=== PATIENT | female | born 1950 | race Caucasian/White ===

== ENCOUNTER → 2016-10-16 | Outpatient (CLI) | payer OTHER, MEDICARE ==
[~2016-10-16] MED LIST: AMLO5TAB4 PO; ASPI-518 PO; CALC-1232 GT; CALC-4 PO; CALC667C4 PO; CARV6.2548 PO; COR3 PO; DILT60TA35 PO; INSU100I19 SQ; LOSA25TA12 PO; NEPVIT PO; SIMV10TA6 PO; SITA50TA3 PO; VENL37.55 PO; WARF5TAB73 PO
== END | disposition home or self-care (01) ==
LOC: CT 07:41
PROVIDERS: ATTEND Internal Medicine Gastroenterology
DX: N26.1 Atrophy of kidney (terminal) (principal); R19.7 Diarrhea, unspecified; I51.7 Cardiomegaly; Z95.810 Presence of automatic (implantable) cardiac defibrillator
CPT/HCPCS: 71010; 74176

== ENCOUNTER → 2016-12-21 | Day surgery (SDC) | payer MEDICARE, OTHER ==
[~2016-12-21] MED LIST changes: +ACETAMINOPHEN 325MG TABLET PO PRN; +ATROPINE SULFATE 1MG/10ML SYR IV PRN; +FENTANYL CITRATE/PF 50MCG/ML 2ML VIAL ONE; +HYDRALAZINE 20MG/ML VIAL IV PRN; +HYDROCODONE/ACETAMINOPHEN 5/325MG TABLET PO PRN; +IOHEXOL-300 100 ML BOTTLE ONE; +LIDOCAINE HCL 1% 20ML VIAL (Pyxis) INJ ONE; +MIDAZOLAM HCL 2 MG/2 ML VIAL ONE; +ONDANSETRON HCL 4MG/2ML VIAL IV PRN
[2016-12-21 12:27] LABS: BASOPHILS % 0.6 % (0.0-2.0); EOSINOPHILS % 4.7 % (0.0-5.0); HEMATOCRIT. 29.9 % (36.0-48.0); HEMOGLOBIN. 10.1 g/dL (12.0-16.0); LYMPHOCYTES % 24.5 % (20.0-50.0); MEAN CORPUSCULAR HEMOGLOBIN 34.7 pg (28.0-32.0); MEAN CORPUSCULAR VOLUME 103.1 fL (81.0-99.0); MEAN PLATELET VOLUME 7.2 fl (7.4-10.4); MONOCYTES % 13.3 % (2.0-8.0); NEUTROPHILS % 56.9 % (40.0-76.0); PLATELET 171 x1000/uL (130-400); RED CELL DISTRIBUTION WIDTH 14.5 % (11.6-14.6)
[2016-12-21 12:31] LABS: PARTIAL THROMBOPLASTIN TIME 31.7 sec (23.4-31.0); PROTHROMBIN TIME 20.6 sec (9.4-11.6)
== END | disposition home or self-care (01) ==
LOC: CCL 11:09
PROVIDERS: ATTEND Specialist
DX: I25.10 Atherosclerotic heart disease of native coronary artery without angina pectoris (principal); I51.7 Cardiomegaly; I50.9 Heart failure, unspecified
CPT/HCPCS: 36415; 80048; 85025; 85610; 85730; 93458; C1760; C1769; C1887; C1893; J1644; J2250; J3010; J3490; Q9967

== ENCOUNTER 2017-10-20 16:50 | Inpatient (IN) | payer MEDICARE, OTHER ==
[~2017-10-20] VITALS: Ht 154.9 cm; Wt 61.2 kg
[~2017-10-20 16:50] MED LIST changes: -ACETAMINOPHEN 325MG TABLET PO PRN; -AMLO5TAB4 PO; -ATROPINE SULFATE 1MG/10ML SYR IV PRN; -CALC-1232 GT; -CALC-4 PO; -CARV6.2548 PO; +COR25 PO; -COR3 PO; -DILT60TA35 PO; +ESCI10TA PO; -FENTANYL CITRATE/PF 50MCG/ML 2ML VIAL ONE; +FOLI1TAB63 PO; -HYDRALAZINE 20MG/ML VIAL IV PRN; -HYDROCODONE/ACETAMINOPHEN 5/325MG TABLET PO PRN; -IOHEXOL-300 100 ML BOTTLE ONE; +LANTUSUD SUBCUT; -LIDOCAINE HCL 1% 20ML VIAL (Pyxis) INJ ONE; +LORA0.5T2 PO; -LOSA25TA12 PO; +MECL-109 PO; -MIDAZOLAM HCL 2 MG/2 ML VIAL ONE; -NEPVIT PO; -ONDANSETRON HCL 4MG/2ML VIAL IV PRN; +WARF4TAB40 PO; -WARF5TAB73 PO
[2017-10-20 18:42] VITALS: BP 164/51
[2017-10-20] MEDS ORDERED: DEXTROSE 50% WATER 50ML SYRINGE IV PRN (18:45)
[2017-10-20] MEDS ORDERED: LABETALOL 5MG/ML SYR 20 MG/4 ML SYRINGE IV PRN (18:45)
[2017-10-20] MEDS ORDERED: MECLIZINE 25MG TABLET PO PRN (18:45)
[2017-10-20 20:00] VITALS: BP 159/52
[2017-10-20] MEDS: CARVEDILOL 25MG TABLET PO SCH (21:00)
[2017-10-20] MEDS: BLOOD SUGAR DIAGNOSTIC STRIP TEST SCH (21:40)
[2017-10-20] MEDS: ACETAMINOPHEN 325MG TABLET PO PRN (21:55)
[2017-10-20] MEDS: PHENYTOIN SODIUM EXTENDED 100MG CAPSULE PO SCH (21:55)
[2017-10-20] MEDS: ATORVASTATIN CALCIUM 10MG TABLET PO SCH (21:55)
[2017-10-20] MEDS: LOSARTAN POTASSIUM 50 MG TABLET PO SCH (21:55)
[2017-10-20] MEDS: AMLODIPINE 5MG TABLET PO SCH (21:56)
[2017-10-20] MEDS: INSULIN LISPRO 100 UNITS/ML SUBCUT SCH (21:57)
[2017-10-21] MEDS: INSULIN LISPRO 100 UNITS/ML SUBCUT SCH ×4 (06:10→22:23)
[2017-10-21] MEDS: BLOOD SUGAR DIAGNOSTIC STRIP TEST SCH ×4 (06:10→21:37)
[2017-10-21 06:47] LABS: BASOPHILS % 1.1 % (0.0-2.0); EOSINOPHILS % 6.3 % (0.0-5.0); HEMATOCRIT. 35.9 % (36.0-48.0); HEMOGLOBIN. 12.1 g/dL (12.0-16.0); LYMPHOCYTES % 26.7 % (20.0-50.0); MEAN PLATELET VOLUME 8.1 fl (7.4-10.4); MONOCYTES % 12.2 % (2.0-8.0); NEUTROPHILS % 53.7 % (40.0-76.0); PLATELET 162 x1000/uL (130-400); RED BLOOD CELL COUNT 3.45 mill/uL (4.2-5.4); RED CELL DISTRIBUTION WIDTH 14.5 % (11.6-14.6)
[2017-10-21 07:00] LABS: CHLORIDE 100 mEq/L (98-107)
[2017-10-21 08:00] VITALS: BP 136/34
[2017-10-21] MEDS: CALCIUM ACETATE 667MG CAPSULE PO SCH ×3 (08:23→17:51)
[2017-10-21] MEDS: FOLIC ACID/VITAMIN B COMP W-C TABLET PO SCH (08:23)
[2017-10-21] MEDS: AMLODIPINE 5MG TABLET PO SCH ×2 (08:24→21:00)
[2017-10-21] MEDS: CARVEDILOL 25MG TABLET PO SCH ×2 (08:24→22:22)
[2017-10-21] MEDS: LOSARTAN POTASSIUM 50 MG TABLET PO SCH ×2 (08:24→21:00)
[2017-10-21] MEDS ORDERED: DOCUSATE SODIUM 250MG CAPSULE PO PRN (09:45)
[2017-10-21 20:00] VITALS: BP 131/62
[2017-10-21] MEDS: PHENYTOIN SODIUM EXTENDED 100MG CAPSULE PO SCH (22:21)
[2017-10-21] MEDS: ATORVASTATIN CALCIUM 10MG TABLET PO SCH (22:22)
[2017-10-22] MEDS: BLOOD SUGAR DIAGNOSTIC STRIP TEST SCH ×4 (06:28→21:35)
[2017-10-22 08:00] VITALS: BP 128/41
[2017-10-22] MEDS: CALCIUM ACETATE 667MG CAPSULE PO SCH ×3 (08:12→17:00)
[2017-10-22] MEDS: LOSARTAN POTASSIUM 50 MG TABLET PO SCH ×2 (08:12→22:00)
[2017-10-22] MEDS: AMLODIPINE 5MG TABLET PO SCH ×2 (08:13→21:00)
[2017-10-22] MEDS: FOLIC ACID/VITAMIN B COMP W-C TABLET PO SCH (08:13)
[2017-10-22] MEDS: INSULIN LISPRO 100 UNITS/ML SUBCUT SCH ×4 (08:13→22:01)
[2017-10-22] MEDS: CARVEDILOL 25MG TABLET PO SCH ×2 (08:13→21:00)
[2017-10-22 08:20] LABS: BASOPHILS % 1.2 % (0.0-2.0); HEMATOCRIT. 34.6 % (36.0-48.0); HEMOGLOBIN. 11.5 g/dL (12.0-16.0); LYMPHOCYTES % 29.9 % (20.0-50.0); MEAN CORPUSCULAR HEMOGLOBIN 34.6 pg (28.0-32.0); MEAN CORPUSCULAR VOLUME 104.1 fL (81.0-99.0); MEAN PLATELET VOLUME 8.1 fl (7.4-10.4); MONOCYTES % 12.8 % (2.0-8.0); NEUTROPHILS % 51.1 % (40.0-76.0); PLATELET 169 x1000/uL (130-400); RED BLOOD CELL COUNT 3.32 mill/uL (4.2-5.4); RED CELL DISTRIBUTION WIDTH 14.5 % (11.6-14.6)
[2017-10-22 20:00] VITALS: BP 156/36
[2017-10-22] MEDS: PHENYTOIN SODIUM EXTENDED 100MG CAPSULE PO SCH (21:54)
[2017-10-22] MEDS: ATORVASTATIN CALCIUM 10MG TABLET PO SCH (21:55)
[2017-10-23] MEDS: INSULIN LISPRO 100 UNITS/ML SUBCUT SCH ×4 (06:04→20:55)
[2017-10-23] MEDS: BLOOD SUGAR DIAGNOSTIC STRIP TEST SCH ×4 (06:04→20:37)
[2017-10-23 06:37] LABS: BASOPHILS % 0.9 % (0.0-2.0); EOSINOPHILS % 5.3 % (0.0-5.0); HEMATOCRIT. 34.4 % (36.0-48.0); HEMOGLOBIN. 11.5 g/dL (12.0-16.0); LYMPHOCYTES % 28.7 % (20.0-50.0); MEAN CORPUSCULAR HEMOGLOBIN 34.6 pg (28.0-32.0); MEAN PLATELET VOLUME 7.8 fl (7.4-10.4); MONOCYTES % 13.5 % (2.0-8.0); NEUTROPHILS % 51.6 % (40.0-76.0); PLATELET 181 x1000/uL (130-400); RED BLOOD CELL COUNT 3.34 mill/uL (4.2-5.4); RED CELL DISTRIBUTION WIDTH 14.3 % (11.6-14.6)
[2017-10-23 07:07] LABS: CHLORIDE 96 mEq/L (98-107)
[2017-10-23 07:14] LABS: PHOSPHORUS 3.6 mg/dL (2.5-4.9)
[2017-10-23 07:18] LABS: TOTAL IRON BINDING CAPACITY 176 ug/dL (250-450)
[2017-10-23 07:57] LABS: FOLIC ACID (FOLATE) SERUM >20 ng/mL ng/mL (>5.38)
[2017-10-23 08:00] VITALS: BP 116/62
[2017-10-23 08:09] LABS: VITAMIN B12 SERUM 1150 pg/mL (211-911)
[2017-10-23] MEDS: ACETAMINOPHEN 325MG TABLET PO PRN ×2 (08:26→13:54)
[2017-10-23] MEDS: CALCIUM ACETATE 667MG CAPSULE PO SCH ×3 (08:26→16:07)
[2017-10-23] MEDS: FOLIC ACID/VITAMIN B COMP W-C TABLET PO SCH (08:26)
[2017-10-23] MEDS: LOSARTAN POTASSIUM 50 MG TABLET PO SCH ×2 (08:26→20:32)
[2017-10-23] MEDS: AMLODIPINE 5MG TABLET PO SCH ×2 (08:27→20:32)
[2017-10-23] MEDS: CARVEDILOL 25MG TABLET PO SCH ×2 (08:27→20:32)
[2017-10-23 09:34] LABS: FERRITIN 620 ng/mL (10-291)
[2017-10-23 20:00] VITALS: BP 146/43
[2017-10-23] MEDS: PHENYTOIN SODIUM EXTENDED 100MG CAPSULE PO SCH (20:33)
[2017-10-23] MEDS: ATORVASTATIN CALCIUM 10MG TABLET PO SCH (20:33)
[2017-10-24] MEDS: BLOOD SUGAR DIAGNOSTIC STRIP TEST SCH ×4 (06:19→21:00)
[2017-10-24] MEDS: INSULIN LISPRO 100 UNITS/ML SUBCUT SCH ×4 (06:54→21:00)
[2017-10-24 07:10] LABS: BASOPHILS % 0.7 % (0.0-2.0); EOSINOPHILS % 5.3 % (0.0-5.0); HEMATOCRIT. 32.9 % (36.0-48.0); HEMOGLOBIN. 11.1 g/dL (12.0-16.0); LYMPHOCYTES % 29.9 % (20.0-50.0); MEAN CORPUSCULAR HEMOGLOBIN 34.8 pg (28.0-32.0); MEAN CORPUSCULAR VOLUME 103.1 fL (81.0-99.0); MEAN PLATELET VOLUME 7.9 fl (7.4-10.4); MONOCYTES % 13.9 % (2.0-8.0); NEUTROPHILS % 50.2 % (40.0-76.0); PLATELET 186 x1000/uL (130-400); RED BLOOD CELL COUNT 3.19 mill/uL (4.2-5.4); RED CELL DISTRIBUTION WIDTH 14.4 % (11.6-14.6)
[2017-10-24 08:00] VITALS: BP 119/35
[2017-10-24] MEDS: LOSARTAN POTASSIUM 50 MG TABLET PO SCH ×2 (09:00→22:23)
[2017-10-24] MEDS: AMLODIPINE 5MG TABLET PO SCH ×2 (09:00→22:17)
[2017-10-24] MEDS: CARVEDILOL 25MG TABLET PO SCH ×2 (09:00→21:00)
[2017-10-24] MEDS: CALCIUM ACETATE 667MG CAPSULE PO SCH ×3 (09:10→17:15)
[2017-10-24] MEDS: FOLIC ACID/VITAMIN B COMP W-C TABLET PO SCH (09:10)
[2017-10-24] MEDS: ACETAMINOPHEN 325MG TABLET PO PRN (14:44)
[2017-10-24 20:00] VITALS: BP 97/45
[2017-10-24] MEDS: PHENYTOIN SODIUM EXTENDED 100MG CAPSULE PO SCH (22:17)
[2017-10-24] MEDS: ATORVASTATIN CALCIUM 10MG TABLET PO SCH (22:17)
[2017-10-25 06:03] LABS: BASOPHILS % 1.1 % (0.0-2.0); EOSINOPHILS % 5.5 % (0.0-5.0); HEMOGLOBIN. 11.4 g/dL (12.0-16.0); LYMPHOCYTES % 26.1 % (20.0-50.0); MEAN CORPUSCULAR HEMOGLOBIN 34.7 pg (28.0-32.0); MEAN CORPUSCULAR VOLUME 103.7 fL (81.0-99.0); MEAN PLATELET VOLUME 7.4 fl (7.4-10.4); MONOCYTES % 14.6 % (2.0-8.0); NEUTROPHILS % 52.7 % (40.0-76.0); PLATELET 188 x1000/uL (130-400); RED BLOOD CELL COUNT 3.28 mill/uL (4.2-5.4); RED CELL DISTRIBUTION WIDTH 14.7 % (11.6-14.6)
[2017-10-25] MEDS: BLOOD SUGAR DIAGNOSTIC STRIP TEST SCH ×4 (06:30→21:03)
[2017-10-25] MEDS: INSULIN LISPRO 100 UNITS/ML SUBCUT SCH ×4 (06:30→21:46)
[2017-10-25 08:00] VITALS: BP 119/60
[2017-10-25] MEDS: CARVEDILOL 25MG TABLET PO SCH ×2 (09:04→21:02)
[2017-10-25] MEDS: LOSARTAN POTASSIUM 50 MG TABLET PO SCH ×2 (09:04→21:02)
[2017-10-25] MEDS: CALCIUM ACETATE 667MG CAPSULE PO SCH ×3 (09:04→17:04)
[2017-10-25] MEDS: AMLODIPINE 5MG TABLET PO SCH ×2 (09:05→21:03)
[2017-10-25] MEDS: FOLIC ACID/VITAMIN B COMP W-C TABLET PO SCH (12:34)
[2017-10-25] MEDS: ACETAMINOPHEN 325MG TABLET PO PRN (17:04)
[2017-10-25 20:00] VITALS: BP 134/54
[2017-10-25] MEDS: ATORVASTATIN CALCIUM 10MG TABLET PO SCH (21:02)
[2017-10-25] MEDS: PHENYTOIN SODIUM EXTENDED 100MG CAPSULE PO SCH (21:02)
[2017-10-26] MEDS: TRAMADOL 50MG TABLET PO PRN (05:23)
[2017-10-26] MEDS: BLOOD SUGAR DIAGNOSTIC STRIP TEST SCH ×4 (05:26→21:17)
[2017-10-26] MEDS: INSULIN LISPRO 100 UNITS/ML SUBCUT SCH ×4 (05:26→21:18)
[2017-10-26 07:30] LABS: HEMATOCRIT. 32.5 % (36.0-48.0); HEMOGLOBIN. 10.7 g/dL (12.0-16.0); MEAN CORPUSCULAR HEMOGLOBIN 34.2 pg (28.0-32.0); MEAN CORPUSCULAR VOLUME 103.6 fL (81.0-99.0); MEAN PLATELET VOLUME 7.6 fl (7.4-10.4); PLATELET 194 x1000/uL (130-400); RED BLOOD CELL COUNT 3.13 mill/uL (4.2-5.4); RED CELL DISTRIBUTION WIDTH 14.6 % (11.6-14.6)
[2017-10-26 07:50] LABS: CHLORIDE 101 mEq/L (98-107)
[2017-10-26 08:00] VITALS: BP 112/66
[2017-10-26] MEDS: CALCIUM ACETATE 667MG CAPSULE PO SCH ×3 (08:48→17:42)
[2017-10-26] MEDS: LOSARTAN POTASSIUM 50 MG TABLET PO SCH ×2 (08:49→20:37)
[2017-10-26] MEDS: FOLIC ACID/VITAMIN B COMP W-C TABLET PO SCH (08:49)
[2017-10-26] MEDS: CARVEDILOL 25MG TABLET PO SCH ×2 (08:49→20:37)
[2017-10-26] MEDS: AMLODIPINE 5MG TABLET PO SCH ×2 (08:49→20:37)
[2017-10-26 11:19] LABS: PLATELET ESTIMATE NORMAL
[2017-10-26 20:00] VITALS: BP_SYST 114; BP_SYST 160; BP_DIAS 56; BP_DIAS 57; BP_DIAS 58
[2017-10-26] MEDS: ATORVASTATIN CALCIUM 10MG TABLET PO SCH (20:37)
[2017-10-26] MEDS: PHENYTOIN SODIUM EXTENDED 100MG CAPSULE PO SCH (20:38)
[2017-10-26 21:35] VITALS: BP 151/42
[2017-10-27] MEDS: BLOOD SUGAR DIAGNOSTIC STRIP TEST SCH ×4 (06:06→21:08)
[2017-10-27] MEDS: INSULIN LISPRO 100 UNITS/ML SUBCUT SCH ×4 (06:45→21:26)
[2017-10-27 07:20] LABS: BASOPHILS % 0.8 % (0.0-2.0); EOSINOPHILS % 6.3 % (0.0-5.0); HEMATOCRIT. 33.9 % (36.0-48.0); HEMOGLOBIN. 11.3 g/dL (12.0-16.0); LYMPHOCYTES % 27.8 % (20.0-50.0); MEAN CORPUSCULAR HEMOGLOBIN 34.5 pg (28.0-32.0); MEAN CORPUSCULAR VOLUME 103.4 fL (81.0-99.0); MEAN PLATELET VOLUME 7.4 fl (7.4-10.4); NEUTROPHILS % 51.1 % (40.0-76.0); PLATELET 176 x1000/uL (130-400); RED BLOOD CELL COUNT 3.28 mill/uL (4.2-5.4); RED CELL DISTRIBUTION WIDTH 13.9 % (11.6-14.6)
[2017-10-27 08:00] VITALS: BP 118/38
[2017-10-27] MEDS: LOSARTAN POTASSIUM 50 MG TABLET PO SCH ×2 (08:53→20:59)
[2017-10-27] MEDS: CARVEDILOL 25MG TABLET PO SCH ×2 (08:53→20:59)
[2017-10-27] MEDS: CALCIUM ACETATE 667MG CAPSULE PO SCH ×3 (08:53→17:44)
[2017-10-27] MEDS: FOLIC ACID/VITAMIN B COMP W-C TABLET PO SCH (08:53)
[2017-10-27] MEDS: AMLODIPINE 5MG TABLET PO SCH ×2 (08:54→20:59)
[2017-10-27 20:00] VITALS: BP 120/49
[2017-10-27] MEDS: ATORVASTATIN CALCIUM 10MG TABLET PO SCH (20:59)
[2017-10-27] MEDS: PHENYTOIN SODIUM EXTENDED 100MG CAPSULE PO SCH (20:59)
[2017-10-28] MEDS: BLOOD SUGAR DIAGNOSTIC STRIP TEST SCH ×4 (06:20→21:21)
[2017-10-28 06:39] LABS: EOSINOPHILS % 6.8 % (0.0-5.0); HEMATOCRIT. 32.6 % (36.0-48.0); HEMOGLOBIN. 10.9 g/dL (12.0-16.0); MEAN CORPUSCULAR HEMOGLOBIN 34.7 pg (28.0-32.0); MEAN CORPUSCULAR VOLUME 103.3 fL (81.0-99.0); MEAN PLATELET VOLUME 7.8 fl (7.4-10.4); MONOCYTES % 13.8 % (2.0-8.0); NEUTROPHILS % 51.4 % (40.0-76.0); PLATELET 175 x1000/uL (130-400); RED BLOOD CELL COUNT 3.15 mill/uL (4.2-5.4); RED CELL DISTRIBUTION WIDTH 14.2 % (11.6-14.6)
[2017-10-28 06:51] LABS: CHLORIDE 102 mEq/L (98-107)
[2017-10-28] MEDS: INSULIN LISPRO 100 UNITS/ML SUBCUT SCH ×4 (07:12→21:00)
[2017-10-28 08:00] VITALS: BP 141/48
[2017-10-28 08:01] LABS: HEPATITIS B SURFACE ANTIGEN NEGATIVE
[2017-10-28 08:29] LABS: HEPATITIS B CORE AB IGM NEGATIVE
[2017-10-28 08:31] LABS: HEPATITIS A AB IGM NEGATIVE (NEGATIVE)
[2017-10-28] MEDS: CARVEDILOL 25MG TABLET PO SCH ×2 (09:00→20:39)
[2017-10-28] MEDS: FOLIC ACID/VITAMIN B COMP W-C TABLET PO SCH (09:18)
[2017-10-28] MEDS: CALCIUM ACETATE 667MG CAPSULE PO SCH ×3 (09:19→18:40)
[2017-10-28] MEDS: LOSARTAN POTASSIUM 50 MG TABLET PO SCH ×2 (09:19→20:39)
[2017-10-28] MEDS: AMLODIPINE 5MG TABLET PO SCH ×2 (09:20→20:40)
[2017-10-28] MEDS: TRAMADOL 50MG TABLET PO PRN (09:21)
[2017-10-28] MEDS: ACETAMINOPHEN 325MG TABLET PO PRN ×2 (12:45→21:39)
[2017-10-28] MEDS: PHENYTOIN SODIUM 700 MG in SODIUM CHLORIDE 0.9% 100 ML IV NR ×2 (18:41→19:48)
[2017-10-28 20:00] VITALS: BP 153/57
[2017-10-28] MEDS: PHENYTOIN SODIUM EXTENDED 100MG CAPSULE PO SCH (20:40)
[2017-10-28] MEDS: ATORVASTATIN CALCIUM 10MG TABLET PO SCH (20:40)
[2017-10-29] MEDS: BLOOD SUGAR DIAGNOSTIC STRIP TEST SCH ×4 (06:31→21:00)
[2017-10-29 06:42] LABS: BASOPHILS % 0.9 % (0.0-2.0); HEMATOCRIT. 31.2 % (36.0-48.0); HEMOGLOBIN. 10.5 g/dL (12.0-16.0); MEAN CORPUSCULAR HEMOGLOBIN 34.7 pg (28.0-32.0); MEAN CORPUSCULAR VOLUME 102.8 fL (81.0-99.0); MEAN PLATELET VOLUME 7.3 fl (7.4-10.4); MONOCYTES % 12.8 % (2.0-8.0); NEUTROPHILS % 47.3 % (40.0-76.0); PLATELET 169 x1000/uL (130-400); RED BLOOD CELL COUNT 3.03 mill/uL (4.2-5.4); RED CELL DISTRIBUTION WIDTH 14.4 % (11.6-14.6)
[2017-10-29] MEDS: INSULIN LISPRO 100 UNITS/ML SUBCUT SCH ×4 (06:43→21:00)
[2017-10-29 07:58] VITALS: BP 134/50
[2017-10-29 08:00] VITALS: BP 134/50
[2017-10-29] MEDS: CALCIUM ACETATE 667MG CAPSULE PO SCH ×4 (08:29→19:47)
[2017-10-29] MEDS: ACETAMINOPHEN 325MG TABLET PO PRN (08:30)
[2017-10-29] MEDS: AMLODIPINE 5MG TABLET PO SCH ×2 (08:30→22:01)
[2017-10-29] MEDS: LOSARTAN POTASSIUM 50 MG TABLET PO SCH ×2 (08:31→22:01)
[2017-10-29] MEDS: FOLIC ACID/VITAMIN B COMP W-C TABLET PO SCH (08:31)
[2017-10-29] MEDS: CARVEDILOL 25MG TABLET PO SCH ×2 (08:32→22:02)
[2017-10-29 20:00] VITALS: BP 166/52
[2017-10-29] MEDS: ATORVASTATIN CALCIUM 10MG TABLET PO SCH (21:59)
[2017-10-29] MEDS: PHENYTOIN SODIUM EXTENDED 100MG CAPSULE PO SCH (22:00)
[2017-10-30] MEDS: ACETAMINOPHEN 325MG TABLET PO PRN ×3 (00:23→22:15)
[2017-10-30] MEDS: BLOOD SUGAR DIAGNOSTIC STRIP TEST SCH ×4 (06:21→21:00)
[2017-10-30] MEDS: INSULIN LISPRO 100 UNITS/ML SUBCUT SCH ×4 (06:21→22:04)
[2017-10-30 07:27] LABS: EOSINOPHILS % 6.6 % (0.0-5.0); HEMATOCRIT. 29.8 % (36.0-48.0); LYMPHOCYTES % 25.2 % (20.0-50.0); MEAN CORPUSCULAR HEMOGLOBIN 34.3 pg (28.0-32.0); MEAN CORPUSCULAR VOLUME 102.3 fL (81.0-99.0); MONOCYTES % 13.7 % (2.0-8.0); NEUTROPHILS % 53.5 % (40.0-76.0); PLATELET 137 x1000/uL (130-400); RED BLOOD CELL COUNT 2.92 mill/uL (4.2-5.4); RED CELL DISTRIBUTION WIDTH 14.1 % (11.6-14.6)
[2017-10-30 07:49] LABS: CHLORIDE 99 mEq/L (98-107)
[2017-10-30] MEDS: CALCIUM ACETATE 667MG CAPSULE PO SCH ×3 (08:25→16:52)
[2017-10-30] MEDS: AMLODIPINE 5MG TABLET PO SCH ×2 (08:26→22:02)
[2017-10-30] MEDS: FOLIC ACID/VITAMIN B COMP W-C TABLET PO SCH (08:26)
[2017-10-30] MEDS: CARVEDILOL 25MG TABLET PO SCH ×2 (08:26→22:03)
[2017-10-30] MEDS: LOSARTAN POTASSIUM 50 MG TABLET PO SCH ×2 (08:26→22:03)
[2017-10-30 10:23] VITALS: BP 147/53
[2017-10-30 12:00] VITALS: BP 123/32
[2017-10-30] MEDS: HYDRALAZINE HCL 25MG TABLET PO SCH ×2 (14:13→22:00)
[2017-10-30] MEDS ORDERED: LACTULOSE 20G/30ML UDC PO NR (15:15)
[2017-10-30 20:00] VITALS: BP 151/52
[2017-10-30] MEDS: ATORVASTATIN CALCIUM 10MG TABLET PO SCH (22:01)
[2017-10-30] MEDS: PHENYTOIN SODIUM EXTENDED 100MG CAPSULE PO SCH (22:01)
[2017-10-30 23:00] VITALS: BP 135/45
[2017-10-31] MEDS: HYDRALAZINE HCL 25MG TABLET PO SCH ×3 (06:00→23:03)
[2017-10-31] MEDS: BLOOD SUGAR DIAGNOSTIC STRIP TEST SCH ×4 (06:30→21:17)
[2017-10-31] MEDS: INSULIN LISPRO 100 UNITS/ML SUBCUT SCH ×4 (07:40→21:00)
[2017-10-31 08:00] VITALS: BP 120/38
[2017-10-31 08:18] LABS: EOSINOPHILS % 8.4 % (0.0-5.0); HEMATOCRIT. 30.3 % (36.0-48.0); HEMOGLOBIN. 10.2 g/dL (12.0-16.0); LYMPHOCYTES % 27.1 % (20.0-50.0); MEAN CORPUSCULAR HEMOGLOBIN 34.6 pg (28.0-32.0); MEAN CORPUSCULAR VOLUME 103.1 fL (81.0-99.0); MEAN PLATELET VOLUME 8.7 fl (7.4-10.4); MONOCYTES % 14.6 % (2.0-8.0); NEUTROPHILS % 48.9 % (40.0-76.0); PLATELET 146 x1000/uL (130-400); RED BLOOD CELL COUNT 2.94 mill/uL (4.2-5.4); RED CELL DISTRIBUTION WIDTH 14.3 % (11.6-14.6)
[2017-10-31] MEDS: AMLODIPINE 5MG TABLET PO SCH ×2 (09:00→23:02)
[2017-10-31] MEDS: CARVEDILOL 25MG TABLET PO SCH ×2 (09:00→23:02)
[2017-10-31] MEDS: FOLIC ACID/VITAMIN B COMP W-C TABLET PO SCH (09:08)
[2017-10-31] MEDS: CALCIUM ACETATE 667MG CAPSULE PO SCH ×3 (09:09→16:33)
[2017-10-31] MEDS: LOSARTAN POTASSIUM 50 MG TABLET PO SCH ×2 (09:09→23:02)
[2017-10-31] MEDS: ACETAMINOPHEN 325MG TABLET PO PRN (15:15)
[2017-10-31 20:00] VITALS: BP 136/87
[2017-10-31] MEDS: ATORVASTATIN CALCIUM 10MG TABLET PO SCH (23:01)
[2017-10-31] MEDS: PHENYTOIN SODIUM EXTENDED 100MG CAPSULE PO SCH (23:01)
[2017-11-01] MEDS: ACETAMINOPHEN 325MG TABLET PO PRN (04:05)
[2017-11-01] MEDS: HYDRALAZINE HCL 25MG TABLET PO SCH ×2 (05:22→13:06)
[2017-11-01] MEDS: BLOOD SUGAR DIAGNOSTIC STRIP TEST SCH ×2 (06:07→11:15)
[2017-11-01] MEDS: INSULIN LISPRO 100 UNITS/ML SUBCUT SCH ×2 (06:48→13:09)
[2017-11-01 07:26] LABS: BASOPHILS % 1.1 % (0.0-2.0); EOSINOPHILS % 7.4 % (0.0-5.0); HEMATOCRIT. 28.9 % (36.0-48.0); HEMOGLOBIN. 9.7 g/dL (12.0-16.0); LYMPHOCYTES % 27.9 % (20.0-50.0); MEAN CORPUSCULAR HEMOGLOBIN 34.3 pg (28.0-32.0); MEAN CORPUSCULAR VOLUME 102.2 fL (81.0-99.0); MONOCYTES % 12.5 % (2.0-8.0); NEUTROPHILS % 51.1 % (40.0-76.0); PLATELET 136 x1000/uL (130-400); RED BLOOD CELL COUNT 2.83 mill/uL (4.2-5.4); RED CELL DISTRIBUTION WIDTH 13.9 % (11.6-14.6)
[2017-11-01 07:50] VITALS: BP 128/40
[2017-11-01 08:00] VITALS: BP 128/40
[2017-11-01] MEDS: CALCIUM ACETATE 667MG CAPSULE PO SCH ×2 (08:28→13:06)
[2017-11-01] MEDS: FOLIC ACID/VITAMIN B COMP W-C TABLET PO SCH (08:28)
[2017-11-01] MEDS: CARVEDILOL 25MG TABLET PO SCH (08:53)
[2017-11-01] MEDS: LOSARTAN POTASSIUM 50 MG TABLET PO SCH (08:54)
[2017-11-01] MEDS: AMLODIPINE 5MG TABLET PO SCH (08:55)
[2017-11-01 11:14] VITALS: BP 128/40
[2017-11-04 11:14] LABS: 25-HYDROXY VITAMIN D3 10 ng/mL (.)
== END 2017-11-01 14:45 | disposition home health service (06) | DRG 85 ==
PROVIDERS: ADMIT Physical Medicine & Rehabilitation Spinal Cord Injury Medicine; ATTEND Internal Medicine
PROC: 5A1D70Z Performance of Urinary Filtration, Intermittent, Less than 6 Hours Per Day (ICD-10-PCS; principal; 2017-10-22)
PROC: 5A1D70Z Performance of Urinary Filtration, Intermittent, Less than 6 Hours Per Day (ICD-10-PCS; 2017-10-23)
PROC: 5A1D70Z Performance of Urinary Filtration, Intermittent, Less than 6 Hours Per Day (ICD-10-PCS; 2017-10-24)
PROC: 5A1D70Z Performance of Urinary Filtration, Intermittent, Less than 6 Hours Per Day (ICD-10-PCS; 2017-10-26)
PROC: 5A1D70Z Performance of Urinary Filtration, Intermittent, Less than 6 Hours Per Day (ICD-10-PCS; 2017-10-29)
PROC: 5A1D70Z Performance of Urinary Filtration, Intermittent, Less than 6 Hours Per Day (ICD-10-PCS; 2017-10-31)
DX: S06.6X0A Traumatic subarachnoid hemorrhage without loss of consciousness, initial encounter (principal); N18.6 End stage renal disease; S42.252A Displaced fracture of greater tuberosity of left humerus, initial encounter for closed fracture; I48.92 Unspecified atrial flutter; I12.0 Hypertensive chronic kidney disease with stage 5 chronic kidney disease or end stage renal disease; W18.30XA Fall on same level, unspecified, initial encounter; S09.8XXA Other specified injuries of head, initial encounter; W18.39XA Other fall on same level, initial encounter; E11.22 Type 2 diabetes mellitus with diabetic chronic kidney disease; I48.91 Unspecified atrial fibrillation; E78.5 Hyperlipidemia, unspecified; R13.10 Dysphagia, unspecified; R53.81 Other malaise; R26.9 Unspecified abnormalities of gait and mobility; R79.89 Other specified abnormal findings of blood chemistry; H91.90 Unspecified hearing loss, unspecified ear; E87.5 Hyperkalemia; I25.10 Atherosclerotic heart disease of native coronary artery without angina pectoris; S62.511A Displaced fracture of proximal phalanx of right thumb, initial encounter for closed fracture; D63.1 Anemia in chronic kidney disease; F32.9 Major depressive disorder, single episode, unspecified; I25.5 Ischemic cardiomyopathy; Z99.2 Dependence on renal dialysis; Z91.81 History of falling; Y92.512 Supermarket, store or market as the place of occurrence of the external cause; Y92.89 Other specified places as the place of occurrence of the external cause; Y99.8 Other external cause status; Z79.01 Long term (current) use of anticoagulants; Z82.49 Family history of ischemic heart disease and other diseases of the circulatory system; Z95.810 Presence of automatic (implantable) cardiac defibrillator
CPT/HCPCS: 36415; 76700; 80048; 80053; 80185; 82306; 82607; 82728; 82746; 82962; 83540; 83550; 83735; 84100; 84134; 84443; 84630; 85025; 86705; 86709; 86803; 87340; 92523; 92610; 93005; 93970; 93971; 97110; 97112; 97116; 97162; 97167; 97530; 97535; A6261; J1165; J1815; J7030; J7050

== ENCOUNTER 2018-06-16 19:58 | Emergency (ER) | payer MEDICARE, OTHER ==
[~2018-06-16] VITALS: Ht 147.3 cm; Wt 62.0 kg
[2018-06-16] MEDS ORDERED: SODIUM CHLORIDE 0.9% 1,000 ML IV ONE (23:21)
[2018-06-16 23:51] LABS: BASOPHILS % 0.2 % (0.0-2.0); EOSINOPHILS % 0.4 % (0.0-5.0); HEMATOCRIT. 32.9 % (36.0-48.0); LYMPHOCYTES % 14.4 % (20.0-50.0); MEAN CORPUSCULAR HEMOGLOBIN 36.2 pg (28.0-32.0); MEAN CORPUSCULAR VOLUME 108.1 fL (81.0-99.0); MEAN PLATELET VOLUME 8.4 fl (7.4-10.4); MONOCYTES % 5.5 % (2.0-8.0); NEUTROPHILS % 79.5 % (40.0-76.0); PLATELET 101 x1000/uL (130-400); RED BLOOD CELL COUNT 3.04 mill/uL (4.2-5.4)
[2018-06-16 23:54] LABS: CHLORIDE 97 mEq/L (98-107)
[2018-06-16 23:55] LABS: INR 1.3; PROTHROMBIN TIME 12.6 sec (9.1-11.1)
[2018-06-17] MEDS ORDERED: SODIUM CHLORIDE 0.9% 1,000 ML IV SCH (00:15)
[2018-06-17 02:03] VITALS: BP 117/39
== END 2018-06-17 02:28 | disposition home or self-care (01) ==
LOC: ER 20:53
DX: J18.9 Pneumonia, unspecified organism (principal); R19.7 Diarrhea, unspecified; E78.00 Pure hypercholesterolemia, unspecified; I12.0 Hypertensive chronic kidney disease with stage 5 chronic kidney disease or end stage renal disease; N18.6 End stage renal disease; Z98.890 Other specified postprocedural states; Z95.0 Presence of cardiac pacemaker
CPT/HCPCS: 36415; 71045; 80053; 82962; 83605; 85025; 85610; 93005; 96360; 96361; 99284; J7030

== ENCOUNTER 2018-07-17 18:53 | Inpatient (IN) | payer MEDICARE, OTHER ==
[~2018-07-17] VITALS: Ht 152.4 cm; Wt 72.6 kg
[2018-07-17] MEDS ORDERED: LOPERAMIDE 2 MG/10 ML UDC PO ONE (19:30)
[2018-07-17] MEDS ORDERED: ONDANSETRON HCL 4MG/2ML INJ IV STA (19:30)
[2018-07-17 19:58] LABS: BASOPHILS % 0.7 % (0.0-2.0); EOSINOPHILS % 2.7 % (0.0-5.0); HEMATOCRIT. 34.9 % (36.0-48.0); HEMOGLOBIN. 11.4 g/dL (12.0-16.0); LYMPHOCYTES % 20.5 % (20.0-50.0); MEAN CORPUSCULAR HEMOGLOBIN 36.5 pg (28.0-32.0); MEAN CORPUSCULAR VOLUME 111.5 fL (81.0-99.0); MEAN PLATELET VOLUME 7.9 fl (7.4-10.4); NEUTROPHILS % 62.1 % (40.0-76.0); PLATELET 152 x1000/uL (130-400); RED BLOOD CELL COUNT 3.13 mill/uL (4.2-5.4); RED CELL DISTRIBUTION WIDTH 17.1 % (11.6-14.6)
[2018-07-17 20:02] LABS: CHLORIDE 105 mEq/L (98-107)
[2018-07-17 20:18] LABS: PLATELET ESTIMATE NORMAL
[2018-07-17] MEDS ORDERED: HYDROCODONE/ACETAMINOPHEN 5/325MG TABLET PO ONE (20:45)
[2018-07-17] MEDS ORDERED: CALCIUM CHLORIDE 1GM/10ML SYR IV ONE (21:00)
[2018-07-17] MEDS ORDERED: INSULIN REGULAR (HUMULIN R) 300UNITS/3ML IV ONE (21:00)
[2018-07-17] MEDS ORDERED: DEXTROSE 50% WATER 50ML SYRINGE IV ONE (21:00)
[2018-07-17] MEDS ORDERED: SODIUM BICARBONATE 8.4% 1 MEQ/ML 50ML SYR IV ONE (21:00)
[2018-07-18] MEDS ORDERED: ONDANSETRON HCL 4MG/2ML INJ IV PRN (00:30)
[2018-07-18] MEDS ORDERED: IPRATROPIUM/ALBUTEROL 0.5-3(2.5)MG/3ML NEB INH PRN (00:30)
[2018-07-18] MEDS ORDERED: DOCUSATE SODIUM 100MG CAPSULE PO PRN (00:30)
[2018-07-18 00:35] VITALS: BP 142/59
[2018-07-18] MEDS ORDERED: DEXTROSE 50% WATER 50ML SYRINGE IV PRN (02:15)
[2018-07-18 04:00] VITALS: BP 103/52
[2018-07-18] MEDS ORDERED: ATOR10TA MT (05:10)
[2018-07-18] MEDS ORDERED: CLOP75TA33 MT (05:10)
[2018-07-18] MEDS ORDERED: MONT10TA24 MT (05:10)
[2018-07-18] MEDS ORDERED: CARV25TA47 MT (05:10)
[2018-07-18] MEDS ORDERED: MECL12.584 MT (05:10)
[2018-07-18] MEDS ORDERED: DILT60TA3 MT (05:10)
[2018-07-18] MEDS ORDERED: ESCI10TA54 PO (05:10)
[2018-07-18] MEDS ORDERED: CALC1TAB99 PO (05:10)
[2018-07-18] MEDS ORDERED: ASPI-1158 MT (05:10)
[2018-07-18] MEDS ORDERED: CALC667T5 MT (05:10)
[2018-07-18] MEDS ORDERED: NEPVIT PO (05:15)
[2018-07-18] MEDS ORDERED: CALC-3 MT (05:16)
[2018-07-18] MEDS: HYDROCODONE/ACETAMINOPHEN 5/325MG TABLET PO PRN ×2 (05:30→10:54)
[2018-07-18] MEDS: INSULIN LISPRO 100 UNITS/ML SUBCUT SCH ×4 (06:34→21:00)
[2018-07-18] MEDS: BLOOD SUGAR DIAGNOSTIC STRIP TEST SCH ×4 (06:34→21:25)
[2018-07-18 06:59] LABS: BASOPHILS % 0.5 % (0.0-2.0); EOSINOPHILS % 2.3 % (0.0-5.0); HEMATOCRIT. 33.1 % (36.0-48.0); HEMOGLOBIN. 10.8 g/dL (12.0-16.0); LYMPHOCYTES % 18.8 % (20.0-50.0); MEAN CORPUSCULAR HEMOGLOBIN 36.5 pg (28.0-32.0); MEAN CORPUSCULAR VOLUME 111.8 fL (81.0-99.0); MEAN PLATELET VOLUME 8.2 fl (7.4-10.4); MONOCYTES % 12.6 % (2.0-8.0); NEUTROPHILS % 65.8 % (40.0-76.0); PLATELET 152 x1000/uL (130-400); RED BLOOD CELL COUNT 2.97 mill/uL (4.2-5.4); RED CELL DISTRIBUTION WIDTH 17.4 % (11.6-14.6)
[2018-07-18 07:32] LABS: CREATINE KINASE MB FRACTION 1.8 ng/mL (0.5-3.6)
[2018-07-18 08:00] VITALS: BP 129/57
[2018-07-18 12:00] VITALS: BP 118/63
[2018-07-18] MEDS ORDERED: INFLUENZA VIRUS VACCINE(AFLURIA) 0.5ML SYR IM ONE (12:00)
[2018-07-18] MEDS ORDERED: PNEUMOCOCCAL 23-VAL P-SAC VAC 0.5 ML IM ONE (12:00)
[2018-07-18] MEDS ORDERED: MECLIZINE 25MG TABLET PO PRN (15:45)
[2018-07-18 16:00] VITALS: BP 121/66
[2018-07-18] MEDS: MONTELUKAST SODIUM 10MG TABLET PO SCH (18:09)
[2018-07-18] MEDS: CALCIUM ACETATE 667MG CAPSULE PO SCH (18:09)
[2018-07-18] MEDS: ACETAMINOPHEN 325MG TABLET PO PRN (18:09)
[2018-07-18] MEDS: CALCIUM CARBONATE/VITAMIN D3 500MG TABLET PO SCH ×2 (18:09→21:24)
[2018-07-18] MEDS: DILTIAZEM HCL 60MG TABLET PO SCH ×2 (18:21→21:24)
[2018-07-18 18:46] LABS: CREATINE KINASE MB FRACTION 2.4 ng/mL (0.5-3.6)
[2018-07-18 20:00] VITALS: BP 127/41
[2018-07-18] MEDS ORDERED: ATORVASTATIN CALCIUM 10MG TABLET PO SCH (21:00)
[2018-07-18] MEDS: CARVEDILOL 25MG TABLET PO SCH (21:25)
[2018-07-19] VITALS: BP 91/33
[2018-07-19 04:00] VITALS: BP 97/50
[2018-07-19] MEDS: DILTIAZEM HCL 60MG TABLET PO SCH (06:00)
[2018-07-19] MEDS: CALCIUM CARBONATE/VITAMIN D3 500MG TABLET PO SCH ×2 (06:22→13:21)
[2018-07-19 08:08] LABS: INR 1.2; PROTHROMBIN TIME 12.6 sec (9.6-11.0)
[2018-07-19 08:09] LABS: BASOPHILS % 0.5 % (0.0-2.0); EOSINOPHILS % 1.5 % (0.0-5.0); HEMATOCRIT. 32.4 % (36.0-48.0); HEMOGLOBIN. 10.5 g/dL (12.0-16.0); LYMPHOCYTES % 11.8 % (20.0-50.0); MEAN CORPUSCULAR HEMOGLOBIN 36.3 pg (28.0-32.0); MEAN CORPUSCULAR VOLUME 112.2 fL (81.0-99.0); MEAN PLATELET VOLUME 7.8 fl (7.4-10.4); MONOCYTES % 9.9 % (2.0-8.0); NEUTROPHILS % 76.3 % (40.0-76.0); PLATELET 124 x1000/uL (130-400); RED BLOOD CELL COUNT 2.89 mill/uL (4.2-5.4); RED CELL DISTRIBUTION WIDTH 17.8 % (11.6-14.6)
[2018-07-19 08:10] VITALS: BP 115/40
[2018-07-19] MEDS: CALCIUM ACETATE 667MG CAPSULE PO SCH ×3 (08:14→17:06)
[2018-07-19] MEDS: CARVEDILOL 25MG TABLET PO SCH (08:15)
[2018-07-19] MEDS: ACETAMINOPHEN 325MG TABLET PO PRN (08:15)
[2018-07-19] MEDS ORDERED: ASPIRIN 81MG TABLET PO SCH (09:00)
[2018-07-19] MEDS ORDERED: CLOPIDOGREL 75MG TABLET PO SCH (09:00)
[2018-07-19] MEDS ORDERED: FOLIC ACID/VITAMIN B COMP W-C TABLET PO SCH (09:00)
[2018-07-19 09:40] LABS: FOLIC ACID (FOLATE) SERUM >20 ng/mL ng/mL (>5.38)
[2018-07-19 09:51] LABS: VITAMIN B12 SERUM 1921 pg/mL (211-911)
[2018-07-19 09:59] LABS: FERRITIN 419 ng/mL (10-291)
[2018-07-19] MEDS: GUAIFENESIN-DM 200MG-20MG/10ML UDC PO PRN ×2 (11:00→17:06)
[2018-07-19 12:00] VITALS: BP 108/38
[2018-07-19] MEDS: BLOOD SUGAR DIAGNOSTIC STRIP TEST SCH ×2 (12:10→17:06)
[2018-07-19] MEDS: INSULIN LISPRO 100 UNITS/ML SUBCUT SCH ×2 (13:21→17:06)
[2018-07-19 15:57] VITALS: BP 107/44
[2018-07-19] MEDS: MONTELUKAST SODIUM 10MG TABLET PO SCH (17:06)
[2018-07-19 18:35] VITALS: BP_SYST 107; BP_SYST 114; BP_DIAS 44; BP_DIAS 50
[2018-07-19] MEDS ORDERED: AMIODARONE HCL 200 MG TABLET PO SCH (21:00)
== END 2018-07-19 20:30 | disposition home or self-care (01) | DRG 393 ==
LOC: ER 18:53 → EDBEDREQ 21:04 → EDBEDREQTM 21:04 → ENRESERV 23:30 → 8WST 07-18 00:32
PROVIDERS: ADMIT Internal Medicine; ATTEND Internal Medicine
PROC: 5A1D70Z Performance of Urinary Filtration, Intermittent, Less than 6 Hours Per Day (ICD-10-PCS; principal; 2018-07-18)
PROC: 5A1D70Z Performance of Urinary Filtration, Intermittent, Less than 6 Hours Per Day (ICD-10-PCS; 2018-07-19)
DX: K52.1 Toxic gastroenteritis and colitis (principal); I50.23 Acute on chronic systolic (congestive) heart failure; K85.90 Acute pancreatitis without necrosis or infection, unspecified; N18.6 End stage renal disease; I13.2 Hypertensive heart and chronic kidney disease with heart failure and with stage 5 chronic kidney disease, or end stage renal disease; I48.92 Unspecified atrial flutter; I42.0 Dilated cardiomyopathy; T36.95XA Adverse effect of unspecified systemic antibiotic, initial encounter; Y92.89 Other specified places as the place of occurrence of the external cause; M94.0 Chondrocostal junction syndrome [Tietze]; D50.9 Iron deficiency anemia, unspecified; D53.9 Nutritional anemia, unspecified; D63.8 Anemia in other chronic diseases classified elsewhere; E11.21 Type 2 diabetes mellitus with diabetic nephropathy; E11.22 Type 2 diabetes mellitus with diabetic chronic kidney disease; E11.649 Type 2 diabetes mellitus with hypoglycemia without coma; E78.00 Pure hypercholesterolemia, unspecified; E78.5 Hyperlipidemia, unspecified; E87.5 Hyperkalemia; H91.90 Unspecified hearing loss, unspecified ear; I25.10 Atherosclerotic heart disease of native coronary artery without angina pectoris; I25.5 Ischemic cardiomyopathy; I44.30 Unspecified atrioventricular block; I48.0 Paroxysmal atrial fibrillation; I45.10 Unspecified right bundle-branch block; Z79.01 Long term (current) use of anticoagulants; Z79.02 Long term (current) use of antithrombotics/antiplatelets; Z79.4 Long term (current) use of insulin; Z79.899 Other long term (current) drug therapy; Z95.810 Presence of automatic (implantable) cardiac defibrillator; Z99.2 Dependence on renal dialysis; Z87.820 Personal history of traumatic brain injury; I07.1 Rheumatic tricuspid insufficiency; Z79.82 Long term (current) use of aspirin
CPT/HCPCS: 36415; 71045; 80048; 80061; 82550; 82553; 82607; 82728; 82746; 82962; 83036; 83540; 83550; 83880; 84443; 84484; 87015; 87045; 87427; 87449; 87493; 89055; 90686; 90732; 93005; 93970; 99291; J1815; J2405; J3490

== ENCOUNTER → 2018-09-24 | Outpatient (CLI) | payer MEDICARE, OTHER ==
[~2018-09-24] MED LIST changes: +ASPI-1158 MT; -ASPI-518 PO; +ATOR10TA MT; +BARIUM SULFATE 450ML ORAL SUSP ONE; +CALC-3 MT; +CALC1TAB99 PO; -CALC667C4 PO; +CALC667T6 MT; +CARV25TA47 MT; +CLOP75TA33 MT; -COR25 PO; -ESCI10TA PO; +ESCI10TA54 PO; -FOLI1TAB63 PO; -INSU100I19 SQ; -LANTUSUD SUBCUT; -LORA0.5T2 PO; -MECL-109 PO; +MECL12.584 MT; +MONT10TA24 MT; +NEPVIT PO; -SIMV10TA6 PO; -SITA50TA3 PO; -VENL37.55 PO; -WARF4TAB40 PO
== END | disposition home or self-care (01) ==
LOC: CT 06:50
PROVIDERS: ATTEND Internal Medicine Gastroenterology
DX: K57.90 Diverticulosis of intestine, part unspecified, without perforation or abscess without bleeding (principal); D53.9 Nutritional anemia, unspecified; I70.8 Atherosclerosis of other arteries; I13.2 Hypertensive heart and chronic kidney disease with heart failure and with stage 5 chronic kidney disease, or end stage renal disease; N18.6 End stage renal disease; I50.9 Heart failure, unspecified; Z90.49 Acquired absence of other specified parts of digestive tract
CPT/HCPCS: 74176

== ENCOUNTER → 2018-10-15 | Outpatient (CLI) | payer MEDICARE, OTHER ==
[~2018-10-15] MED LIST changes: -BARIUM SULFATE 450ML ORAL SUSP ONE
== END | disposition home or self-care (01) ==
LOC: US 07:52
PROVIDERS: ATTEND Internal Medicine Gastroenterology
DX: R18.8 Other ascites (principal)
CPT/HCPCS: 76700

== ENCOUNTER → 2018-11-06 | Outpatient (CLI) | payer MEDICARE, OTHER ==
[~2018-11-06] MED LIST changes: +LEVVL SQ; +SACU1TAB PO
== END | disposition home or self-care (01) ==
LOC: US 08:43
PROVIDERS: ATTEND Internal Medicine Gastroenterology
DX: K86.2 Cyst of pancreas (principal); R18.8 Other ascites; Z90.49 Acquired absence of other specified parts of digestive tract
CPT/HCPCS: 76700; 93976

== ENCOUNTER 2018-12-16 08:44 | Day surgery (SDC) | payer MEDICARE, OTHER ==
[~2018-12-16] VITALS: Ht 160 cm; Wt 63.5 kg
[~2018-12-16 08:44] MED LIST changes: -LEVVL SQ; -SACU1TAB PO
[2018-12-16] MEDS ORDERED: SODIUM CHLORIDE 0.9% 500 ML IV ONE (09:20)
[2018-12-16] MEDS ORDERED: MEPERIDINE HCL/PF 25MG/ML CPJ IV PRN (11:00)
[2018-12-16] MEDS ORDERED: HYDROMORPHONE HCL/PF 2MG/ML CPJ IV PRN (11:00)
[2018-12-16] MEDS ORDERED: LABETALOL 5MG/ML SYR 20 MG/4 ML SYRINGE IV PRN (11:00)
[2018-12-16] MEDS ORDERED: ONDANSETRON HCL 4MG/2ML INJ IV PRN (11:00)
[2018-12-16] MEDS ORDERED: PROPOFOL 200MG/20ML VIAL IV ONE (11:05)
[2018-12-16] MEDS ORDERED: SIMETHICONE 40 MG/0.6 ML 30ML ONE (11:15)
[2018-12-16] MEDS ORDERED: LEVVL SQ ×2 (12:46)
[2018-12-16] MEDS ORDERED: SACU1TAB PO (12:46)
== END 2018-12-16 14:00 | disposition home or self-care (01) ==
LOC: OR 08:44
PROVIDERS: ATTEND Internal Medicine Gastroenterology
DX: K52.9 Noninfective gastroenteritis and colitis, unspecified (principal); R10.9 Unspecified abdominal pain; K64.8 Other hemorrhoids; K29.50 Unspecified chronic gastritis without bleeding; I12.0 Hypertensive chronic kidney disease with stage 5 chronic kidney disease or end stage renal disease; E11.22 Type 2 diabetes mellitus with diabetic chronic kidney disease; N18.6 End stage renal disease; K21.9 Gastro-esophageal reflux disease without esophagitis; Z99.2 Dependence on renal dialysis; Z79.82 Long term (current) use of aspirin; Z79.4 Long term (current) use of insulin; Z82.49 Family history of ischemic heart disease and other diseases of the circulatory system; Z80.8 Family history of malignant neoplasm of other organs or systems
CPT/HCPCS: 36415; 43239; 45380; 45385; 80048; 82962; 88305; 88312; 88313; J2704; J7040

== ENCOUNTER → 2019-03-10 | Outpatient (CLI) | payer MEDICARE, OTHER ==
[~2019-03-10] MED LIST changes: -CALC-3 MT; -CALC667T6 MT; -CARV25TA47 MT; -ESCI10TA54 PO; +LEVVL SQ; -MECL12.584 MT; -MONT10TA24 MT; -NEPVIT PO; +SACU1TAB PO
== END | disposition home or self-care (01) ==
LOC: RAD 10:04
PROVIDERS: ATTEND Internal Medicine Gastroenterology
DX: K57.30 Diverticulosis of large intestine without perforation or abscess without bleeding (principal); N18.6 End stage renal disease; M47.819 Spondylosis without myelopathy or radiculopathy, site unspecified
CPT/HCPCS: 74018

== ENCOUNTER 2019-03-19 17:33 | Inpatient (IN) | payer MEDICARE, OTHER ==
[~2019-03-19] VITALS: Ht 165.1 cm; Wt 63.5 kg
[2019-03-20] MEDS ORDERED: ASPIRIN 81MG TABLET PO ONE (01:00)
[2019-03-20 02:14] LABS: INR 1.2; PARTIAL THROMBOPLASTIN TIME 30.1 sec (23.4-31.0); PROTHROMBIN TIME 12.2 sec (9.6-11.0)
[2019-03-20 02:17] LABS: CHLORIDE 98 mEq/L (98-107)
[2019-03-20 03:29] LABS: BASOPHILS % 0.6 % (0.0-2.0); EOSINOPHILS % 1.2 % (0.0-5.0); HEMOGLOBIN. 11.4 g/dL (12.0-16.0); LYMPHOCYTES % 17.7 % (20.0-50.0); MEAN CORPUSCULAR HEMOGLOBIN 35.2 pg (28.0-32.0); MEAN CORPUSCULAR VOLUME 105.4 fL (81.0-99.0); MONOCYTES % 5.4 % (2.0-8.0); NEUTROPHILS % 75.1 % (40.0-76.0); RED BLOOD CELL COUNT 3.23 mill/uL (4.2-5.4); RED CELL DISTRIBUTION WIDTH 17.7 % (11.6-14.6)
[2019-03-20 03:54] LABS: MEAN PLATELET VOLUME 9.3 fl (7.4-10.4); PLATELET 34 x1000/uL (130-400)
[2019-03-20] MEDS ORDERED: NITROGLYCERIN OINT 1GM/INCH UDPKT TD ONE (05:00)
[2019-03-20] MEDS ORDERED: CLOPIDOGREL 75MG TABLET PO SCH (09:30)
[2019-03-20 10:26] VITALS: BP 115/34
[2019-03-20] MEDS: BLOOD SUGAR DIAGNOSTIC STRIP TEST SCH ×3 (11:35→23:08)
[2019-03-20 12:00] VITALS: BP 142/26
[2019-03-20] MEDS ORDERED: NON FORMULARY PATIENT HOME MED XX SCH (13:45)
[2019-03-20] MEDS: CARVEDILOL 12.5MG TABLET PO SCH ×2 (13:49→22:55)
[2019-03-20] MEDS: SACUBITRIL/VALSARTAN 24/26 TAB PO SCH ×2 (14:08→22:55)
[2019-03-20 16:00] VITALS: BP 118/19
[2019-03-20 20:00] VITALS: BP 126/34
[2019-03-20] MEDS: ATORVASTATIN CALCIUM 20MG TABLET PO SCH (22:55)
[2019-03-21] VITALS: BP 99/38
[2019-03-21 04:00] VITALS: BP 100/26
[2019-03-21] MEDS: ACETAMINOPHEN 325MG TABLET PO PRN (04:49)
[2019-03-21] MEDS: BLOOD SUGAR DIAGNOSTIC STRIP TEST SCH ×5 (05:51→20:51)
[2019-03-21 06:33] LABS: BASOPHILS % 0.5 % (0.0-2.0); EOSINOPHILS % 0.2 % (0.0-5.0); HEMATOCRIT. 34.3 % (36.0-48.0); HEMOGLOBIN. 11.5 g/dL (12.0-16.0); LYMPHOCYTES % 21.5 % (20.0-50.0); MEAN CORPUSCULAR HEMOGLOBIN 35.2 pg (28.0-32.0); MEAN CORPUSCULAR VOLUME 105.1 fL (81.0-99.0); MEAN PLATELET VOLUME 10.8 fl (7.4-10.4); NEUTROPHILS % 72.8 % (40.0-76.0); RED BLOOD CELL COUNT 3.26 mill/uL (4.2-5.4); RED CELL DISTRIBUTION WIDTH 17.7 % (11.6-14.6)
[2019-03-21 06:39] LABS: PLATELET 35 x1000/uL (130-400)
[2019-03-21 08:00] VITALS: BP 109/51
[2019-03-21] MEDS: CARVEDILOL 12.5MG TABLET PO SCH ×2 (08:50→20:38)
[2019-03-21] MEDS ORDERED: ASPIRIN 81MG TABLET PO SCH (09:00)
[2019-03-21] MEDS: SACUBITRIL/VALSARTAN 24/26 TAB PO SCH ×2 (09:05→20:38)
[2019-03-21 12:00] VITALS: BP 99/66
[2019-03-21] MEDS ORDERED: DEXTROSE 50% WATER 50ML SYRINGE IV PRN (12:30)
[2019-03-21] MEDS: INSULIN LISPRO 100 UNITS/ML SUBCUT SCH ×3 (13:16→20:53)
[2019-03-21 16:00] VITALS: BP 106/50
[2019-03-21] MEDS ORDERED: ONDANSETRON HCL 4MG/2ML INJ IV PRN (18:15)
[2019-03-21 20:00] VITALS: BP 108/38
[2019-03-21] MEDS: ATORVASTATIN CALCIUM 20MG TABLET PO SCH (20:38)
[2019-03-22] VITALS (7 sets, daily range): BP systolic 90–103; BP diastolic 36–53
[2019-03-22] MEDS: BLOOD SUGAR DIAGNOSTIC STRIP TEST SCH ×4 (05:51→20:59)
[2019-03-22 07:13] LABS: CHLORIDE 96 mEq/L (98-107)
[2019-03-22 07:24] LABS: BASOPHILS % 0.4 % (0.0-2.0); EOSINOPHILS % 0.1 % (0.0-5.0); HEMATOCRIT. 33.5 % (36.0-48.0); HEMOGLOBIN. 11.2 g/dL (12.0-16.0); LYMPHOCYTES % 23.7 % (20.0-50.0); MEAN CORPUSCULAR HEMOGLOBIN 34.9 pg (28.0-32.0); MEAN CORPUSCULAR VOLUME 104.9 fL (81.0-99.0); MEAN PLATELET VOLUME 9.8 fl (7.4-10.4); MONOCYTES % 4.8 % (2.0-8.0); RED BLOOD CELL COUNT 3.19 mill/uL (4.2-5.4); RED CELL DISTRIBUTION WIDTH 17.9 % (11.6-14.6)
[2019-03-22 07:36] LABS: PLATELET 39 x1000/uL (130-400)
[2019-03-22] MEDS: INSULIN LISPRO 100 UNITS/ML SUBCUT SCH ×4 (08:10→21:00)
[2019-03-22] MEDS: CARVEDILOL 12.5MG TABLET PO SCH (08:39)
[2019-03-22] MEDS: SACUBITRIL/VALSARTAN 24/26 TAB PO SCH ×2 (08:59→20:59)
[2019-03-22] MEDS ORDERED: SODIUM POLYSTYRENE SULFONATE 15 G/60 ML BOT PO SCH (13:00)
[2019-03-22 14:04] LABS: PLATELET ESTIMATE MARKEDLY DECREASED
[2019-03-22] MEDS ORDERED: SODIUM CHLORIDE 0.9% 100 ML IV SCH (14:45)
[2019-03-22] MEDS ORDERED: SODIUM CHLORIDE 0.9% 100 ML IV ONE (14:47)
[2019-03-22] MEDS ORDERED: DILTIAZEM HCL 5MG/ML 5ML VIAL IV SCH (16:00)
[2019-03-22] MEDS ORDERED: DILTIAZEM HCL 5MG/ML 5ML VIAL IV PRN (17:00)
[2019-03-22] MEDS: DILTIAZEM HCL 30MG TABLET PO SCH (18:05)
[2019-03-22] MEDS: ATORVASTATIN CALCIUM 20MG TABLET PO SCH (20:59)
[2019-03-23] VITALS (7 sets, daily range): BP systolic 95–120; BP diastolic 21–41
[2019-03-23] MEDS: DILTIAZEM HCL 30MG TABLET PO SCH ×4 (05:34→17:23)
[2019-03-23] MEDS: BLOOD SUGAR DIAGNOSTIC STRIP TEST SCH ×4 (05:37→21:00)
[2019-03-23] MEDS: INSULIN LISPRO 100 UNITS/ML SUBCUT SCH ×4 (08:03→22:04)
[2019-03-23] MEDS: SACUBITRIL/VALSARTAN 24/26 TAB PO SCH ×2 (09:07→22:05)
[2019-03-23 10:57] LABS: BASOPHILS % 0.5 % (0.0-2.0); EOSINOPHILS % 0.2 % (0.0-5.0); HEMATOCRIT. 33.9 % (36.0-48.0); HEMOGLOBIN. 11.2 g/dL (12.0-16.0); LYMPHOCYTES % 15.5 % (20.0-50.0); MEAN CORPUSCULAR HEMOGLOBIN 35.3 pg (28.0-32.0); MEAN CORPUSCULAR VOLUME 106.7 fL (81.0-99.0); MEAN PLATELET VOLUME 9.4 fl (7.4-10.4); NEUTROPHILS % 79.8 % (40.0-76.0); RED BLOOD CELL COUNT 3.17 mill/uL (4.2-5.4); RED CELL DISTRIBUTION WIDTH 18.4 % (11.6-14.6)
[2019-03-23 11:03] LABS: CHLORIDE 99 mEq/L (98-107)
[2019-03-23 11:09] LABS: PLATELET 37 x1000/uL (130-400)
[2019-03-23 11:12] LABS: T4 FREE 0.95 ng/dL (0.76-1.46)
[2019-03-23] MEDS: ATORVASTATIN CALCIUM 20MG TABLET PO SCH (21:32)
[2019-03-24] VITALS: BP 100/21
[2019-03-24 04:00] VITALS: BP 127/32
[2019-03-24] MEDS: DILTIAZEM HCL 30MG TABLET PO SCH ×3 (06:00→12:00)
[2019-03-24] MEDS: INSULIN LISPRO 100 UNITS/ML SUBCUT SCH ×3 (06:54→17:19)
[2019-03-24] MEDS: BLOOD SUGAR DIAGNOSTIC STRIP TEST SCH ×3 (06:54→17:10)
[2019-03-24 08:00] VITALS: BP 124/62
[2019-03-24 08:28] LABS: BASOPHILS % 0.4 % (0.0-2.0); EOSINOPHILS % 0.2 % (0.0-5.0); HEMATOCRIT. 34.1 % (36.0-48.0); HEMOGLOBIN. 11.3 g/dL (12.0-16.0); LYMPHOCYTES % 14.6 % (20.0-50.0); MEAN CORPUSCULAR HEMOGLOBIN 34.9 pg (28.0-32.0); MEAN CORPUSCULAR VOLUME 105.1 fL (81.0-99.0); MEAN PLATELET VOLUME 10.3 fl (7.4-10.4); MONOCYTES % 3.7 % (2.0-8.0); NEUTROPHILS % 81.1 % (40.0-76.0); RED BLOOD CELL COUNT 3.24 mill/uL (4.2-5.4); RED CELL DISTRIBUTION WIDTH 18.3 % (11.6-14.6)
[2019-03-24 08:54] LABS: PLATELET 39 x1000/uL (130-400)
[2019-03-24] MEDS: SACUBITRIL/VALSARTAN 24/26 TAB PO SCH (09:56)
[2019-03-24 12:00] VITALS: BP 109/25
[2019-03-24 13:41] LABS: PLATELET ESTIMATE MARKEDLY DECREASED
[2019-03-24 16:00] VITALS: BP 101/33
[2019-03-24] MEDS: ACETAMINOPHEN 325MG TABLET PO PRN (16:50)
[2019-03-24 17:23] VITALS: BP 101/33
== END 2019-03-24 18:10 | disposition home or self-care (01) | DRG 308 ==
LOC: ER 17:33 → 7WST 03-20 04:17 → ENRESERV 03-20 07:58
PROVIDERS: ADMIT Internal Medicine; ATTEND Internal Medicine
PROC: 5A1D70Z Performance of Urinary Filtration, Intermittent, Less than 6 Hours Per Day (ICD-10-PCS; principal; 2019-03-20)
PROC: 4B02XTZ Measurement of Cardiac Defibrillator, External Approach (ICD-10-PCS; 2019-03-20)
PROC: 5A1D70Z Performance of Urinary Filtration, Intermittent, Less than 6 Hours Per Day (ICD-10-PCS; 2019-03-22)
PROC: 5A1D70Z Performance of Urinary Filtration, Intermittent, Less than 6 Hours Per Day (ICD-10-PCS; 2019-03-24)
DX: I48.0 Paroxysmal atrial fibrillation (principal); E43 Unspecified severe protein-calorie malnutrition; N18.6 End stage renal disease; I13.2 Hypertensive heart and chronic kidney disease with heart failure and with stage 5 chronic kidney disease, or end stage renal disease; I50.22 Chronic systolic (congestive) heart failure; E87.1 Hypo-osmolality and hyponatremia; D69.3 Immune thrombocytopenic purpura; D64.9 Anemia, unspecified; E11.22 Type 2 diabetes mellitus with diabetic chronic kidney disease; E78.5 Hyperlipidemia, unspecified; E87.5 Hyperkalemia; F03.90 Unspecified dementia, unspecified severity, without behavioral disturbance, psychotic disturbance, mood disturbance, and anxiety; I25.10 Atherosclerotic heart disease of native coronary artery without angina pectoris; I27.20 Pulmonary hypertension, unspecified; J44.9 Chronic obstructive pulmonary disease, unspecified; G89.29 Other chronic pain; M54.5 Low back pain; D75.89 Other specified diseases of blood and blood-forming organs; F32.9 Major depressive disorder, single episode, unspecified; H91.93 Unspecified hearing loss, bilateral; I25.5 Ischemic cardiomyopathy; R62.7 Adult failure to thrive; I95.9 Hypotension, unspecified; R74.0 Nonspecific elevation of levels of transaminase and lactic acid dehydrogenase [LDH]; I44.0 Atrioventricular block, first degree; R26.89 Other abnormalities of gait and mobility; I48.92 Unspecified atrial flutter; I25.2 Old myocardial infarction; Z79.02 Long term (current) use of antithrombotics/antiplatelets; Z79.4 Long term (current) use of insulin; Z86.73 Personal history of transient ischemic attack (TIA), and cerebral infarction without residual deficits; Z86.74 Personal history of sudden cardiac arrest; Z95.810 Presence of automatic (implantable) cardiac defibrillator; Z99.2 Dependence on renal dialysis; Z79.82 Long term (current) use of aspirin; Z79.899 Other long term (current) drug therapy; Z82.49 Family history of ischemic heart disease and other diseases of the circulatory system; Z68.23 Body mass index [BMI] 23.0-23.9, adult
CPT/HCPCS: 36415; 71045; 80048; 80053; 80061; 82962; 83036; 83605; 83735; 83880; 84439; 84443; 84481; 84484; 85025; 87804; 93005; 93306; 93971; 97162; 99285; C1893; J1815; J2405; J3490